=== PATIENT | male | born 1975 | race Caucasian/White ===

== ENCOUNTER 2020-03-14 11:07 | Emergency (ER) | payer OTHER, MEDICAID ==
[~2020-03-14] VITALS: Ht 177.8 cm; Wt 62.6 kg
[2020-03-14] MEDS ORDERED: IBUPROFEN 800 MG TABLET PO ONE (11:30)
[2020-03-14 11:32] VITALS: BP_SYST 100
[2020-03-14 13:08] VITALS: BP_SYST 100
== END 2020-03-14 13:10 | disposition home or self-care (01) ==
LOC: SED 11:07
DX: M79.672 Pain in left foot (principal); M79.671 Pain in right foot
CPT/HCPCS: 99282

== ENCOUNTER 2021-04-29 22:55 | Emergency (ER) | payer OTHER, MEDICAID ==
[~2021-04-29] VITALS: Ht 175.3 cm; Wt 58.5 kg
[2021-04-29 23:01] VITALS: BP_SYST 104
[2021-04-30 02:25] LABS: BASOPHILS % (AUTO) 0.3 % (0.0-2.0); EOSINOPHILS # (AUTO) 0.1 K/uL (0.0-0.4); EOSINOPHILS % (AUTO) 0.9 % (0.0-4.0); HEMATOCRIT 36.1 % (36-54); LYMPHOCYTES % (AUTO) 14.3 % (20.5-51.5); MEAN CORPUSCULAR HEMOGLOBIN 31 pg (27-31); MEAN CORPUSCULAR HGB CONC 33 % (32-36); MEAN CORPUSCULAR VOLUME 93 fL (79.0-98.0); MONOCYTES # (AUTO) 0.6 K/uL (0.0-1.0); MONOCYTES % (AUTO) 8.8 % (1.7-9.3); NEUTROPHILS # (AUTO) 5.5 K/uL (1.8-7.7); NEUTROPHILS % (AUTO) 75.7 % (40.0-70.0); PLATELET COUNT (AUTO) 286 K/uL (130-430); RED BLOOD CELL COUNT(AUTO) 3.91 MIL/uL (4.2-6.2); RED CELL DISTRIBUTION WIDTH 13.8 % (9.0-15.0); WHITE BLOOD COUNT (AUTO) 7.3 K/uL (4.8-10.8)
[2021-04-30 02:48] LABS: ALBUMIN 4.2 g/dL (3.4-4.8); CALCIUM 9.6 mg/dL (8.4-11.0); CREATININE 1.62 mg/dL (0.55-1.30); POTASSIUM 4.9 mmol/L (3.5-5.1); TOTAL BILIRUBIN 0.7 mg/dL (0.0-1.0)
[2021-04-30] MEDS ORDERED: NACL 0.9% 1,000 ML IV ONE (03:15)
[2021-04-30 04:50] VITALS: BP_SYST 112
== END 2021-04-30 04:50 | disposition home or self-care (01) ==
LOC: SED 22:55
DX: M79.671 Pain in right foot (principal); M79.672 Pain in left foot; N28.9 Disorder of kidney and ureter, unspecified
CPT/HCPCS: 36415; 80053; 82550; 85025; 96360; 99283; J7030

== ENCOUNTER 2021-06-03 07:31 | Emergency (ER) | payer OTHER, MEDICAID ==
[~2021-06-03] VITALS: Ht 177.8 cm; Wt 55.3 kg
--- NOTE | 2021-06-03 07:43 | NUR ---
Pt triaged and placed in waiting room
[2021-06-03 07:44] VITALS: BP_SYST 136
--- NOTE | 2021-06-03 07:45 | NUR ---
Pt bib EMS from the street, pt is homeless and reports "walking around a lot", left foot pain, 10/10. Denies any trauma, no medical history noted. V/S stable, no acute distress.
--- NOTE | 2021-06-03 07:50 | NUR ---
ER Dr. Wong at bedside examining patient.
[2021-06-03] MEDS ORDERED: IBUPROFEN 600 MG TABLET PO ONE (08:00)
--- NOTE | 2021-06-03 08:00 | NUR ---
Called for social work therapist consult d/t pt being homeless. They do not get in until 9am, left a message for her to come see patient.
[2021-06-03] MEDS ORDERED: IBUP-1969 PO (08:03)
--- NOTE | 2021-06-03 08:20 | NUR ---
Patient given written and verbal discharge instructions and verbalizes understanding. ER MD discussed with patient the results and treatment provided. Patient in stable condition. ID arm band removed. Rx of Motrin given. Patient educated on pain management and to follow up with PMD. Pain Scale 3. Opportunity for questions provided and answered. Medication side effect fact sheet provided. Pt in waiting room, waiting for licensed social worker.
--- NOTE | 2021-06-03 08:45 | NUR ---
Gloria, collections manager at bedside to discuss options with patient for homeless discharge.
--- NOTE | 2021-06-03 09:32 | NUR ---
Patient given written and verbal discharge instructions and verbalizes understanding. Given copies of tests performed during visit. Patient is awake, alert and oriented. Ambulatory with steady gait. Refuses offer of [facility] placement. Pt has weather appropriate clothing. Given list of available shelters in surrounding areas. Waiver signed and placed on chart.
--- NOTE | 2021-06-03 09:39 | NUR ---
Spoke w/ patient in ER- He stated he will be staying with his brother in [place]. He was given homeless resources for [facility] and homeless [facility] listings. He will be given a taxi voucher to [place] per his request.
[2021-06-03 11:29] VITALS: BP_SYST 136
== END 2021-06-03 11:27 | disposition home or self-care (01) ==
LOC: SED 07:31
DX: L84 Corns and callosities (principal); Z79.899 Other long term (current) drug therapy
CPT/HCPCS: 99282; 99283

== ENCOUNTER 2021-07-29 11:28 | Emergency (ER) | payer OTHER, MEDICAID ==
[~2021-07-29] VITALS: Ht 172.7 cm; Wt 61.2 kg
[~2021-07-29 11:28] MED LIST: IBUP-1969 PO
--- NOTE | 2021-07-29 11:45 | NUR ---
Patient to ER bed H1 to gown for evaluation. Side rails up. Report given to LOLITA LOVING
--- NOTE | 2021-07-29 11:50 | NUR ---
Pt AAO and was bib ambulance for an injury that occured 3 days ago. Pt reports that he fell off a [place] and landed on his right ankle. Pt reports that the pain has become worse and he is having difficulty with ambulation. Pt reports 10/10 pain scale. Pt denies any prior medical history.
[2021-07-29] MEDS ORDERED: OXYCODONE/ACETAMINOPHEN 5-325 TABLET PO ONE (12:30)
--- NOTE | 2021-07-29 12:30 | NUR ---
NHAN Riley at bedside examining patient.
[2021-07-29] MEDS ORDERED: IBUP-1969 PO (14:37)
--- NOTE | 2021-07-29 15:30 | NUR ---
SHORT LEG POSTERIOR splint applied to RLE. + pulse noted. Capillary refill <3 seconds. Patient has ability to move non-splinted digits. Has sensation present to affected site. Skin color within normal limits. Applied for pain management control.
[2021-07-29 16:00] VITALS: BP_SYST 132
--- NOTE | 2021-07-29 16:00 | NUR ---
Patient given written and verbal discharge instructions and verbalizes understanding. ER MD discussed with patient the results and treatment provided. Patient in stable condition. ID arm band removed. Rx of IBUPROFEN given. Patient educated on pain management and to follow up with PMD. Pain Scale 2 Opportunity for questions provided and answered. Medication side effect fact sheet provided.
== END 2021-07-29 16:00 | disposition home or self-care (01) ==
LOC: SED 11:28
DX: S93.401A Sprain of unspecified ligament of right ankle, initial encounter (principal); S90.01XA Contusion of right ankle, initial encounter; F12.90 Cannabis use, unspecified, uncomplicated; Z79.899 Other long term (current) drug therapy; W01.0XXA Fall on same level from slipping, tripping and stumbling without subsequent striking against object, initial encounter; Y93.89 Activity, other specified; Y92.89 Other specified places as the place of occurrence of the external cause; Y99.8 Other external cause status
CPT/HCPCS: 99283

== ENCOUNTER 2021-10-31 10:33 | Emergency (ER) | payer OTHER, MEDICAID, SELFPAY ==
[~2021-10-31] VITALS: Ht 175.3 cm; Wt 55.8 kg
[2021-10-31 10:40] VITALS: BP_SYST 100
--- NOTE | 2021-10-31 10:40 | NUR ---
Pt to bed 5 for evaluation.
--- NOTE | 2021-10-31 10:45 | NUR ---
Pt AAO and ambulatory reporting bilateral foot pain. Pt reports that he walked from [place] causing his feet to hurt. Pt reports pain 10/10 pain scale. Pt reports prior medical history as anxiety only.
--- NOTE | 2021-10-31 10:50 | NUR ---
Dr. Pederson to bedside to assess.
[2021-10-31] MEDS ORDERED: ACET-2634 PO (11:04)
[2021-10-31] MEDS ORDERED: IBUP-1969 PO (11:04)
[2021-10-31] MEDS ORDERED: IBUPROFEN 600 MG TABLET PO ONE (11:15)
[2021-10-31] MEDS ORDERED: ACETAMINOPHEN 500 MG TABLET PO ONE (11:15)
[2021-10-31 11:20] VITALS: BP_SYST 100
--- NOTE | 2021-10-31 11:20 | NUR ---
Patient given written and verbal discharge instructions and verbalizes understanding. Dr. gB JUSTIN MD discussed with patient the results and treatment provided. Patient in stable condition. ID arm band removed. Patient educated on pain management and to follow up with PMD. Pain Scale 2/10. Opportunity for questions provided and answered.
== END 2021-10-31 11:20 | disposition home or self-care (01) ==
LOC: SED 10:33
DX: M77.41 Metatarsalgia, right foot (principal); M77.42 Metatarsalgia, left foot; M72.2 Plantar fascial fibromatosis; F17.210 Nicotine dependence, cigarettes, uncomplicated; Z71.6 Tobacco abuse counseling; F15.90 Other stimulant use, unspecified, uncomplicated; Z59.00 Homelessness unspecified; Z79.899 Other long term (current) drug therapy
CPT/HCPCS: 99283